=== PATIENT | male | born 1960 | race Caucasian/White ===

== ENCOUNTER 2016-03-30 13:15 | Observation (INO) | payer OTHER ==
[~2016-03-30] VITALS: Ht 177.8 cm; Wt 118.0 kg
[2016-03-30 14:08] LABS: HEMATOCRIT 40.7 % (38.0-50.0); MCH 31.9 PG (29.0-34.0); MCHC 34.2 G/DL (30.0-36.0); MCV 93.3 FL (86-99); MEAN PLAT.VOLUME 9.7 uM^3 (9.0-12.4); PLATELET COUNT 181 K/uL (156-360); RBC DIS.WIDTH-CV 13.4 % (11.8-14.6); RBC DIS.WIDTH-SD 44.4 % (39-53); RED BLOOD COUNT 4.36 M/uL (4.00-5.50); WHITE BLOOD COUNT 7.2 K/uL (4.1-10.2)
[2016-03-30 14:21] LABS: CHLORIDE 106 mEq/L (99-109); POTASSIUM 4.1 mEq/L (3.7-5.4); SODIUM 140 mEq/L (136-147)
[2016-03-30 14:22] LABS: GLUCOSE 106 mg/dL (70-99)
[2016-03-30 14:24] LABS: ANION GAP 10 MEQ/L (2-14)
[2016-03-30 14:27] LABS: UREA NITROGEN (BUN) 15 mg/dL (9-23)
[2016-03-30 14:31] LABS: TROP-I INTERPRETATION NEGATIVE; TROPONIN-I 0.01 ng/mL (0.0-0.30)
[2016-03-30 14:33] LABS: GFR ESTIMATE (CALCULATED) > 59 mL/min/
[2016-03-30 15:18] LABS: MAGNESIUM 1.8 mg/dL (1.3-2.7)
[2016-03-30 15:21] LABS: D-DIMER ELISA 0.31 mg/L FEU (< 0.57)
[2016-03-30 17:43] LABS: SERUM ETHYL ALCOHOL < 10 mg/dL
[2016-03-30 18:14] LABS: HDL CHOLESTEROL 60 MG/DL (Desirable>=40); LDL CHOLESTEROL 63 mg/dL (Desirable<100); NON-HDL CHOLESTEROL 104 mg/dL (Desirable<160); TOTAL CHOLESTEROL 164 mg/dL (Desirable<200); TRIGLYCERIDES 204 MG/DL (Normal: <150)
[2016-03-30 20:32] LABS: TROP-I INTERPRETATION NEGATIVE; TROPONIN-I < 0.01 ng/mL (0.0-0.30)
[2016-03-30 22:09] VITALS: BP 160/96
[2016-03-30 22:52] LABS: AMPHETAMINES QUANT VALUE 0 NG/ML; BARBITUATES QUANT VALUE 0 NG/ML; BENZODIAZEPINES QUANT VALUE 0 NG/ML; BENZODIAZEPINES, URINE SCREEN Negative (200 ng/mL); MARIJUANA QUANT VALUE 0 NG/ML; OPIATES QUANTITATIVE VALUE 0 NG/ML; PHENCYCLIDINE QUANT VALUE 0 NG/ML
[2016-03-30 23:54] VITALS: BP 143/90
[2016-03-31 02:46] LABS: TROP-I INTERPRETATION NEGATIVE; TROPONIN-I 0.01 ng/mL (0.0-0.30)
[2016-03-31 04:17] VITALS: BP 156/85
[2016-03-31 07:11] LABS: HEMATOCRIT 37.5 % (38.0-50.0); MCH 33.2 PG (29.0-34.0); MCHC 34.9 G/DL (30.0-36.0); MCV 94.9 FL (86-99); MEAN PLAT.VOLUME 9.8 uM^3 (9.0-12.4); PLATELET COUNT 159 K/uL (156-360); RBC DIS.WIDTH-CV 13.7 % (11.8-14.6); RBC DIS.WIDTH-SD 47.6 % (39-53); RED BLOOD COUNT 3.95 M/uL (4.00-5.50); WHITE BLOOD COUNT 6.9 K/uL (4.1-10.2)
[2016-03-31 07:33] LABS: ANION GAP 8 MEQ/L (2-14); CHLORIDE 104 MEQ/L (99-109); GFR ESTIMATE (CALCULATED) > 59 mL/min/; GLUCOSE 104 mg/dL (70-99); POTASSIUM 3.8 MEQ/L (3.7-5.4); SAMPLE HEMOLYSIS CHECK 0; SAMPLE ICTERIC CHECK 0; SAMPLE LIPEMIA CHECK 0; SODIUM 139 MEQ/L (136-147); UREA NITROGEN (BUN) 13 mg/dL (9-23)
[2016-03-31 08:03] LABS: Estimated Average Glucose 120 mg/dL (70-123); HEMOGLOBIN A1c (GLYCOHEMOGLOB) 5.8 % HGB (Below 5.7)
[2016-03-31 08:20] VITALS: BP 159/99
[2016-03-31 12:00] VITALS: BP 176/71
[2016-03-31] MEDS ORDERED: ASPIR-LOW81 MG PO (14:37)
[2016-03-31] MEDS ORDERED: AMLODIPINE BES2.5 MG PO (14:37)
== END 2016-03-31 15:41 | disposition home or self-care (01) ==
LOC: EME 13:15 → EXP 13:15 → EDOF 16:01 → 5WEST 16:01
PROVIDERS: Physician Assistant
DX: R07.9 Chest pain, unspecified (principal); I71.4 Abdominal aortic aneurysm, without rupture; R06.02 Shortness of breath; M79.602 Pain in left arm; M54.2 Cervicalgia; F10.10 Alcohol abuse, uncomplicated
CPT/HCPCS: 71020; 71275; 80048; 80061; 80306 90; 83036; 83735; 84484; 85027; 85379; 93005; 99281; 99284; G0378; G0480